=== PATIENT | male | born 1985 | race Hispanic/Latino ===

== ENCOUNTER 2022-09-18 05:42 | Observation (INO) | payer OTHER, SELFPAY ==
[2022-09-18 06:10] LABS: #Basophils 0.1 thou/uL (0.0-0.2); #Eosinphils 0.3 thou/uL (0.0-0.7); #Lymphocytes 1.5 thou/uL (1.20-3.40); #Monocytes 0.8 thou/uL (0.11-0.59); #Neutrophils 12.4 thou/uL (1.40-6.50); %Basophils 0.3 % (0.0-1.0); %Eosinophils 1.8 % (0.0-10.0); %Monocytes 5.2 % (0.0-10.0); %Neutrophils 82.7 % (42.0-75.0); Hemoglobin 13.4 g/dL (14.0-18.0); Mean Corpuscular Hemoglobin 27.1 pg (27.0-31.0); Mean Corpuscular Volume 82.1 fl (78.0-98.0); Platelet Count 322 10x3/uL (130-400); RBC Distribution Width 11.9 % (11.5-14.5); Red Blood Cell (RBC) Count 4.94 mill/uL (4.70-6.10)
[2022-09-18 06:34] LABS: ALT (SGPT) 21 U/L (8-55); AST (SGOT) 34 U/L (5-34); Albumin 4.2 g/dL (3.5-5.0); Alkaline Phosphatase 77 U/L (40-110); Anion Gap 10 mmol/L (10-20); BUN (Urea Nitrogen) 18 mg/dL (8.9-20.6); Bilirubin, Total 0.8 mg/dL (0.2-1.2); Calc. Creatinine Clearance 0 mL/min (70-130); Calcium 8.9 mg/dL (7.8-10.44); Carbon Dioxide 26 mmol/L (22-29); Chloride 103 mmol/L (98-107); Estimated GFR 119; Globulin 2.6 g/dL (2.4-3.5); Glucose 94 mg/dL (70-105); Potassium 3.4 mmol/L (3.5-5.1); Protein, Total 6.8 g/dL (6.0-8.3); Sodium 136 mmol/L (136-145)
[2022-09-18] MEDS ORDERED: HYDROmorphone 0.5 MG/0.5 ML SYRINGE ONE (06:56)
[2022-09-18] MEDS ORDERED: Ketorolac Tromethamine 30 MG/ML VIAL ONE (06:57)
[2022-09-18] MEDS ORDERED: Ondansetron PF 4 MG/2 ML Vial ONE (06:57)
[2022-09-18] MEDS ORDERED: Boostrix 0.5 ML (Tdap) VIAL (>/=7 yrs of age) ONE (06:57)
[2022-09-18] MEDS ORDERED: Cyclobenzaprine 10 MG TAB PO PRN (08:14)
[2022-09-18] MEDS ORDERED: Dextrose 50% Abboject 50 ML SYRINGE SLOW IVP PRN (08:55)
[2022-09-18] MEDS ORDERED: Morphine 4 MG/ML VIAL SLOW IVP PRN (08:55)
[2022-09-18] MEDS ORDERED: Ondansetron PF 4 MG/2 ML Vial IVP PRN (08:55)
[2022-09-18] MEDS ORDERED: hydrALAZINE 20 MG/ML VIAL SLOW IVP PRN (08:55)
[2022-09-18] MEDS ORDERED: Dextrose 5% in Water 1,000 ML IV PRN (08:55)
[2022-09-18] MEDS ORDERED: Famotidine 20 MG TAB PO SCH (09:15)
[2022-09-18] MEDS ORDERED: Famotidine 20 MG TAB ONE (10:18)
[2022-09-18] MEDS: Gabapentin 300 MG CAP PO SCH ×2 (10:48→19:46)
[2022-09-18] MEDS ORDERED: Iopamidol-370 76% 500 ML 1 ML ONE (12:08)
[2022-09-18] MEDS ORDERED: Acetaminophen 500 MG TAB ONE ×2 (12:48→19:43)
[2022-09-18] MEDS ORDERED: traMADol HCl 50 MG TAB ONE ×2 (12:48→19:43)
[2022-09-18] MEDS: Acetaminophen 500 MG TAB PO SCH ×2 (12:50→19:47)
[2022-09-18] MEDS: traMADol HCl 50 MG TAB PO SCH ×2 (12:51→19:47)
[2022-09-18 13:24] LABS: SARS-CoV-2 NAA Rapid Test Not Detected (NotDetected)
[2022-09-18] MEDS ORDERED: Ibuprofen 200 MG TAB ONE (15:45)
[2022-09-18] MEDS: Ibuprofen 200 MG TAB PO SCH (15:57)
[2022-09-18 16:58] LABS: Bilirubin Negative (Negative); Blood, Urine Negative (Negative); Clarity Clear (Clear); Glucose, Urine (Dipstick) Normal (Negative); Ketone, Urine Trace mg/dL (Negative); Leukocyte Negative Leu/uL (Negative); Nitrite Negative (Negative); Protein, Urine (Dipstick) Negative (Neg-Trace); Specific Gravity, Urine 1.044 (1.002-1.036); Urobilinogen Normal mg/dL (Less than 2); pH, Urine 5.5 (5.0-9.0)
[2022-09-18] MEDS ORDERED: Famotidine/PF 20 mg/2ml Vial ONE (21:50)
[2022-09-18] MEDS: Famotidine 20 MG TAB PO SCH (21:56)
[2022-09-19] MEDS ORDERED: traMADol HCl 50 MG TAB ONE ×4 (00:26→11:51)
[2022-09-19] MEDS ORDERED: Ibuprofen 200 MG TAB ONE ×2 (00:27→05:44)
[2022-09-19] MEDS ORDERED: Acetaminophen 500 MG TAB ONE ×3 (00:28→11:51)
[2022-09-19] MEDS: Gabapentin 300 MG CAP PO SCH ×2 (00:34→09:07)
[2022-09-19] MEDS: Ibuprofen 200 MG TAB PO SCH ×2 (00:35→06:22)
[2022-09-19] MEDS: Acetaminophen 500 MG TAB PO SCH ×3 (00:35→11:52)
[2022-09-19] MEDS: traMADol HCl 50 MG TAB PO SCH ×3 (00:35→11:52)
[2022-09-19] MEDS: Senokot S 8.6-50 MG TAB PO SCH ×2 (02:46→09:10)
[2022-09-19] MEDS ORDERED: Polyethylene Glycol 3350 17 GM Packet PO SCH (09:00)
[2022-09-19] MEDS: Famotidine 20 MG TAB PO SCH (09:10)
[2022-09-19 11:12] VITALS: BP 118/76; TEMP 98.1
== END 2022-09-19 12:00 | disposition home or self-care (01) ==
LOC: ERS 05:42 → ERHOLD 09:01
PROVIDERS: ADMIT Surgery; ATTEND Surgery
DX: S12.600A Unspecified displaced fracture of seventh cervical vertebra, initial encounter for closed fracture (principal); S22.029A Unspecified fracture of second thoracic vertebra, initial encounter for closed fracture; S22.039A Unspecified fracture of third thoracic vertebra, initial encounter for closed fracture; S22.049A Unspecified fracture of fourth thoracic vertebra, initial encounter for closed fracture; S22.078A Other fracture of T9-T10 vertebra, initial encounter for closed fracture; S42.191A Fracture of other part of scapula, right shoulder, initial encounter for closed fracture; G89.11 Acute pain due to trauma; Z20.822 Contact with and (suspected) exposure to COVID-19; W20.8XXA Other cause of strike by thrown, projected or falling object, initial encounter; Y93.H3 Activity, building and construction; Y92.69 Other specified industrial and construction area as the place of occurrence of the external cause; Y99.0 Civilian activity done for income or pay
CPT/HCPCS: 70450; 70498; 71045; 71260; 72125; 72170; 80053; 81003; 85025; 90471; 90715; 96374; 96375; G0378; G0390; J1170; J1885; J2405; Q9967; S0028; U0002